=== PATIENT | female | born 1985 | race Caucasian/White ===

== ENCOUNTER 2017-06-27 16:43 | Emergency (ER) | payer OTHER ==
[2017-06-27 17:11] VITALS: BP 152/98
--- NOTE | 2017-06-27 17:30 | UC ---
Throat Pain/Nasal Live HPI - HPI Summary HPI Summary: sore throat x 3 day + nasal congestion , no cough, no fever, - History of Current Complaint Chief Complaint: UCGeneralIllness Stated Complaint: strep throat Time Seen by Provider: 06/27/17 17:26 Hx Obtained From: Patient ?: Yes Onset/Duration: Gradual Onset, Lasting Days - 3, Still Present Severity: Moderate Cough: Nonproductive Associated Signs & Symptoms: Positive: Nasal Discharge. Negative: Dysphagia, FB Sensation, Drooling, Wheezing, Hoarseness, Sinus Discomfort, Fever, Vomiting , Rash - Allergies/Home Medications Allergies/Adverse Reactions: Allergies Allergy/AdvReac Type Severity Reaction Status Date / Time Oxycodone [From Percocet] Allergy Itching Verified 06/27/17 17:11 Home Medications: Home Medications Levothyroxine TAB* [Synthroid TAB*] 50 mcg PO DAILY 06/27/17 [History Confirmed 06/27/17] Without A Vit W/ Fe F [ Formula A-Free] 1 tab PO DAILY [History Confirmed 06/27/17] PMH/Surg Hx/FS Hx/Imm Hx Previously Healthy: Yes - Surgical History Surgical History: Yes Surgery Procedure, Year, and Place: T&A, GALLBLADDER - Family History Known Family History: Negative: Diabetes - Social History Alcohol Use: None Substance Use Type: None Smoking Status (MU): Never Smoked Tobacco Review of Systems Constitutional: Negative Skin: Negative Eyes: Negative ENT: Sore Throat Respiratory: Negative Is Patient Immunocompromised?: No All Other Systems Reviewed And Are Negative: Yes Physical Exam Triage Information Reviewed: Yes Appearance: Well-Appearing, No Pain Distress, Obese Vital Signs: Initial Vital Signs Temp 98.5 F 06/27/17 17:08 Pulse 110 06/27/17 17:08 Resp 12 06/27/17 17:08 BP 152/98 06/27/17 17:08 Vital Signs Reviewed: Yes Eyes: Positive: Conjunctiva Clear ENT: Positive: Normal ENT inspection, Hearing grossly normal, Pharynx normal, TMs normal. Negative: Nasal congestion, Nasal drainage Neck exam: Normal Neck: Positive: Supple, Nontender, No Lymphadenopathy Respiratory: Positive: Chest non-tender, Lungs clear, Normal breath sounds Cardiovascular: Positive: RRR, No Murmur, Pulses Normal Abdominal Exam: Normal Skin Exam: Normal Throat Pain/Nasal Course/Dx - Course Assessment/Plan: elevated bp : concern about preeclamsia, pt. with follow up with OB on Thursday - Differential Dx/Diagnosis Provider Diagnoses: viral pharyngitis. elevated bp Discharge - Discharge Plan Condition: Stable Disposition: HOME Patient Education Materials: Pharyngitis (ED) Referrals: Naya Nassar MD [Primary Care Provider] - If Needed
== END 2017-06-27 17:35 | disposition home or self-care (01) ==
LOC: UCCORT 16:43
DX: J02.9 Acute pharyngitis, unspecified (principal); R03.0 Elevated blood-pressure reading, without diagnosis of hypertension; Z88.6 Allergy status to analgesic agent
CPT/HCPCS: 87651; 99211; G0463